=== PATIENT | male | born 1955 | race American Indian/Alaskan Native ===

== ENCOUNTER 2021-01-16 15:55 | Observation (INO) | payer SELFPAY ==
--- NOTE | 2021-01-16 16:07 | Emergency Department Report ---
ED Chest Pain HPI - General Stated Complaint: CHEST PAIN Time Seen by Provider: 01/16/21 16:06 ED Review of Systems ROS: Stated complaint: CHEST PAIN Other details as noted in HPI Critical care attestation.: If time is entered above; I have spent that time in minutes in the direct care of this critically ill patient, excluding procedure time. ED Disposition Condition: Stable
--- NOTE | 2021-01-16 16:19 | Emergency Department Report ---
ED General Adult HPI - General Chief complaint: Syncope Stated complaint: I think I passed out PUI?: No Time Seen by Provider: 01/16/21 16:06 Source: patient, EMS ( EMS documentation not available at time of chart dictati on ), RN notes reviewed Mode of arrival: Stretcher Limitations: No Limitations - History of Present Illness Initial comments: The patient is a 65-year-old gentleman. He is not known to myself previously. He is brought to the hospital by emergency medical services with a possible complaint of dehydration and syncope/near syncope. As per EMS documentation, med 44 responded to engine 7 to a sick call in [facility] to a 65-year-old gentleman with a complaint of possible seizure. EMS documents the patient is found in the care of engine 7, conscious and alert, diaphoretic, appearing weak, but not in any physical distress. Family on scene stated that patient and his nephew were out in their garage with a fan running, hanging out, when the patient began to tense up, and have seizure-like activity. The patient became very weak globally afterwards. The family stated this lasted for 4 to 5 seconds. Patient came around pretty quickly afterwards. Patient was found to be hypotensive, with a glucose of 103. Vital signs otherwise unremarkable. The patient himself is awake, alert, oriented. The patient denies physical pain. The patient states that he was sitting down, and felt like he was going to pass out, and perhaps passed out. The patient denies headache, neck pain, chest pain, abdominal pain, shortness of breath, travel, surgery, immobilization, leg pain, leg swelling, DVT and pulmonary embolism risk factors. He denies hematemesis and bright red blood per rectum. He states he does not take recreational drugs. He states he rarely if ever consumes tobacco and or alcohol. He takes aspirin [id number]. He states he does not take prescription medications. He has not received his Covid vaccination. The patient states that he feels like he is almost back to his baseline, a lthough he feels a little bit weak globally. -: Sudden Consistency: now resolved Improves with: none Worsens with: none - Related Data Allergies Allergy/AdvReac Type Severity Reaction Status Date / Time No Known Allergies Allergy Unverified 01/16/21 20:06 ED Review of Systems ROS: Stated complaint: CHEST PAIN Other details as noted in HPI Constitutional: malaise, weakness. denies: fever Eyes: denies: eye discharge, vision change ENT: denies: epistaxis Respiratory: denies: cough Cardiovascular: syncope. denies: chest pain Gastrointestinal: denies: abdominal pain, hematemesis, melena, hematochezia Genitourinary: denies: dysuria Musculoskeletal: denies: back pain Neurological: weakness. denies: headache Hematological/Lymphatic: denies: easy bleeding ED Physical Exam - General Limitations: No Limitations General appearance: alert, in no apparent distress - Head Head exam: Present: atraumatic, normocephalic - Eye Eye exam: Present: normal appearance, EOMI. Absent: nystagmus - ENT ENT exam: Present: normal exam, normal orophraynx, mucous membranes moist, normal external ear exam - Neck Neck exam: Present: normal inspection, full ROM. Absent: tenderness, meningismus - Respiratory Respiratory exam: Present: normal lung sounds bilaterally. Absent: respiratory distress, wheezes, rales, rhonchi, stridor, decreased breath sounds - Cardiovascular Cardiovascular Exam: Present: regular rate, normal rhythm, normal heart sounds. Absent: bradycardia, tachycardia, irregular rhythm, systolic murmur, diastolic murmur, rubs, gallop - GI/Abdominal GI/Abdominal exam: Present: soft. Absent: distended, tenderness, guarding, rebound, rigid, pulsatile mass - Rectal Rectal exam: Present: normal inspection, heme (-) stool, other (Chaperoned by ER gis mapping technician Aziza Montanez). Absent: heme (+) stool, black stool, bloody stool - Extremities Exam Extremities exam: Present: normal inspection, full ROM, other (2+ pulses noted in the bilateral upper and lower extremities. There is no palpable cord. negative Homans sign. Muscular compartments are soft. The pelvis is stable.). Absent: pedal edema, calf tenderness - Back Exam Back exam: Present: normal inspection, full ROM. Absent: tenderness, CVA tenderness (R), CVA tenderness (L), paraspinal tenderness, vertebral tenderness - Neurological Exam Neurological exam: Present: alert, oriented X3, other (No facial droop. Tongue midline. Extraocular movements intact bilaterally. Facial sensation intact to light touch in V1, V2, V3 distribution bilaterally. 5 and a 5 strength in 4 extremities. Sensation intact to light touch in 4 extremities.) - Psychiatric Psychiatric exam: Present: normal affect, normal mood - Skin Skin exam: Present: warm, dry, intact, normal color. Absent: rash ED Course Vital Signs 01/16/21 01/16/21 01/16/21 16:05 16:10 16:15 Temperature 97.6 F Pulse Rate 63 66 59 L Respiratory 12 14 14 Rate Blood Pressure 82/59 O2 Sat by Pulse 100 99 98 Oximetry 01/16/21 01/16/21 01/16/21 16:20 16:31 16:45 Temperature Pulse Rate 62 63 Respiratory 14 13 12 Rate Blood Pressure 92/59 O2 Sat by Pulse 99 98 Oximetry 01/16/21 01/16/21 01/16/21 17:01 17:15 17:31 Temperature Pulse Rate 60 69 57 L Respiratory 13 15 10 L Rate Blood Pressure 92/59 91/57 91/57 O2 Sat by Pulse 98 98 100 Oximetry 01/16/21 01/16/21 01/16/21 17:45 18:01 19:00 Temperature 97.4 F L Pulse Rate 57 L 53 L Respiratory 8 L 8 L Rate Blood Pressure 90/57 90/57 O2 Sat by Pulse 100 100 Oximetry - Reevaluation(s) Reevaluation #1: 01/16/21 17:17 Differential diagnosis, including but not limited to: Orthostasis, vagal event, structural cardiac disease, arrhythmia, thyroid derangement, electrolyte d erangement, illicit drug use, structural intracranial lesion, pulmonary embolism Assessment and plan: 65-year-old gentleman, who is afebrile, with hypotension, with otherwise reassuring vital signs, who denies travel, surgery, immobilization, DVT and pulmonary embolism risk factors, who is low risk by Wells criteria for pulmonary embolism, who is not currently tachycardic, tachypneic or hypoxic, brought to the hospital by emergency medical services with a complaint of seizure versus syncope. The patient does not have a known history of seizures that he is aware of. He is currently awake, alert, oriented, sober, with a GCS of 15. His physical examination is nondiagnostic, rectal examination is negative for blood. Place patient on surveillance monitor, start 2 L of lactated Ringer's, bolus, obtain appropriate laboratory studies, EKG, noncontrast CT scan of the brain, and D- dimer. Anticipate admission to the medical service once initial diagnostics have resulted. I have discussed this plan of care with the patient. He has verbalized understanding. He is agreeable to this plan of care. He has given permission for the details of his medical care to be discussed with family members. 01/16/21 18:[address] scan of the brain negative for acute findings. 01/16/21 20:09 Blood pressure improved, 110 systolic. Repeat motor exam nonfocal. CT angiogram chest negative for acute findings. Endorsed to hospital physician, Dr. Chen. Medical decision makin-year-old gentleman with seizure versus syncope, hypotension, abnormal EKG, GCS of 15, to be admitted for further inpatient urgent diagnostic evaluation and management. Do not clinically suspect pneumonia or pneumonitis. 01/16/21 20:10 ED Medical Decision Making - Lab Data Result diagrams: 01/16/21 16:26 01/16/21 16:26 Lab Results 01/16/21 01/16/21 01/16/21 Range/Units 16:26 16:26 16:26 WBC 6.5 (4.5-11.0) K/mm3 RBC 3.99 (3.65-5.03) M/mm3 Hgb 12.5 (11.8-15.2) gm/dl Hct 37.3 (35.5-45.6) % MCV 93 (84-94) fl MCH 31 (28-32) pg MCHC 34 (32-34) % RDW 14.6 (13.2-15.2) % Plt Count 228 (140-440) K/mm3 Lymph % (Auto) 33.2 (13.4-35.0) % Maries % (Auto) 7.6 H (0.0-7.3) % Eos % (Auto) 0.5 (0.0-4.3) % Baso % (Auto) 1.6 (0.0-1.8) % Lymph # (Auto) 2.2 (1.2-5.4) K/mm3 Maries # (Auto) 0.5 (0.0-0.8) K/mm3 Eos # (Auto) 0.0 (0.0-0.4) K/mm3 Baso # (Auto) 0.1 (0.0-0.1) K/mm3 Seg Neutrophils % 57.1 (40.0-70.0) % Seg Neutrophils # 3.7 (1.8-7.7) K/mm3 PT 14.9 (12.2-14.9) Sec. INR 1.12 (0.87-1.13) D-Dimer 468.28 H (0-234) ng/mlDDU Lactic Acid 2.00 (0.7-2.0) mmol/L Acetaminophen (10.0-30.0) ug/mL Plasma/Serum Alcohol (0-0.07) % 01/16/21 01/16/21 Range/Units 16:26 16:26 WBC (4.5-11.0) K/mm3 RBC (3.65-5.03) M/mm3 Hgb (11.8-15.2) gm/dl Hct (35.5-45.6) % MCV (84-94) fl MCH (28-32) pg MCHC (32-34) % RDW (13.2-15.2) % Plt Count (140-440) K/mm3 Lymph % (Auto) (13.4-35.0) % Maries % (Auto) (0.0-7.3) % Eos % (Auto) (0.0-4.3) % Baso % (Auto) (0.0-1.8) % Lymph # (Auto) (1.2-5.4) K/mm3 Maries # (Auto) (0.0-0.8) K/mm3 Eos # (Auto) (0.0-0.4) K/mm3 Baso # (Auto) (0.0-0.1) K/mm3 Seg Neutrophils % (40.0-70.0) % Seg Neutrophils # (1.8-7.7) K/mm3 PT (12.2-14.9) Sec. INR (0.87-1.13) D-Dimer (0-234) ng/mlDDU Lactic Acid (0.7-2.0) mmol/L Acetaminophen 5.0 L (10.0-30.0) ug/mL Plasma/Serum Alcohol < 0.01 (0-0.07) % Vital Signs 01/16/21 01/16/21 01/16/21 16:05 16:15 16:31 Pulse Rate 63 59 L 62 Respiratory 12 14 13 Rate Blood Pressure O2 Sat by Pulse 100 98 99 Oximetry 01/16/21 01/16/21 01/16/21 16:45 17:01 17:15 Pulse Rate 63 60 69 Respiratory 12 13 15 Rate Blood Pressure 92/59 92/59 91/57 O2 Sat by Pulse 98 98 98 Oximetry 01/16/21 01/16/21 01/16/21 17:31 17:45 18:01 Pulse Rate 57 L 57 L 53 L Respiratory 10 L 8 L 8 L Rate Blood Pressure 91/57 90/57 90/57 O2 Sat by Pulse 100 100 100 Oximetry - EKG Data -: EKG Interpreted by Nc EKG shows normal: sinus rhythm Rate: normal - EKG Data When compared to previous EKG there are: previous EKG unavailable 01/16/21 17:19 EKG interpreted at 15: 56 Sinus rhythm, with a rate of 59 bpm. There is a normal P wave axis. There is a left axis deviation, with a borderline left anterior fascicular block. There is a right bundle branch block. There is a first-degree AV block. This is an abnormal EKG. This is not a STEMI. Appears to be unchanged from prior prehospital EKG. Otherwise, no prior EKGs available for comparison. - Radiology Data Radiology results: pending, report reviewed, image reviewed CTA CHEST WITH IV CONTRAST INDICATION: syncope + d dimer, abnormal ekg CONTRAST: 100 cc Omnipaque 350 IV COMPARISON: None available. Three-plane MIP reconstructions were produced. All CT scans at this location are performed using CT dose reduction for ALARA by means of automated exposure control. FINDINGS: No significant axillary or chest wall lesions are seen. No mediastinal or hilar masses are noted. Visualized portions of the upper abdomen show small probable cysts in the liver. Stomach is mildly distended with fluid. Small left renal cyst is noted. No pleural effusions are seen. No obvious endobronchial lesions are noted. No pneumothorax or pneumomediastinum are seen. Mild chronic appearing diffuse pulmonary changes are noted including mild emphysematous changes. A 3 mm noncalcified peripheral nodule is seen laterally in the left upper lobe. Atel ectatic changes and probable scarring are seen in both lower lobes. No definite pneumonic infiltrates are identified though the appearance of the left lower lobe does not fully exclude the possibility. No areas of consolidation are noted. Aorta shows no aneurysmal dilatation or obvious evidence of dissection. Good opacification of the pulmonary arterial system was achieved. Artifact from the patient's arms makes evaluation of the lower lobe smaller arteries difficult but I do not see convincing evidence of pulmonary thromboembolism. IMPRESSION: 1. No convincing evidence of pulmonary thromboembolism as above 2. Bilateral atelectatic changes. Pneumonitis is not fully excluded in the left lower lobe. 3. Tiny left upper lobe pulmonary nodule of doubtful significance INCIDENTAL PULMONARY NODULE RECOMMENDATIONS Solid Nodule size* <6 mm -- Single or Multiple - Low Risk Patient: No routine follow-up - High Risk Patient: Optional CT at 12 months Note These recommendations do not apply to lung cancer screening, patients with immunosuppression, or patients with known primary cancer. Note Newly detected indeterminate nodule in persons 35 years of age or older. Persons under the age of 35 should not receive follow-up unless there is a known primary cancer. Low Risk Patient -- minimal or absent history of smoking and of other known risk factors. High Risk Patient -- history of smoking or of other known risk factors. *Dimensions are average of long and short axes, rounded to the nearest millimeter. Based on 2017 Fleischner Society Guidelines found in Radiology 2017 284:228-243. https://doi.[email or web address]/radiol.[email or web address] Signer Name: Napoleon Montanez MD Signed: 01/16/2021 6:58 PM Workstation Name: [id number] CT head/brain wo con INDICATION: New onset seizure versus syncope. TECHNIQUE: Routine CT head. All CT scans at this location are performed using CT dose reduction for ALARA by means of automated exposure control. COMPARISON: None. FINDINGS: Intracranial: Quinones-white matter differentiation is maintained. No intracranial hemorrhage. No extra axial collection. No hydrocephalus. No herniation. Sinuses: Paranasal sinuses and mastoid air cells are essentially c lear. Orbits: Globes are intact. Calvarium: No acute fracture. IMPRESSION: 1. No acute intracranial abnormality. Signer Name: Leonardo Sawyer MD Signed: 01/16/2021 5:47 PM Workstation Name: [id number] Critical care attestation.: If time is entered above; I have spent that time in minutes in the direct care of this critically ill patient, excluding procedure time. ED Disposition Clinical Impression: Syncope, Hypotension, Abnormal EKG Disposition: DC-09 OP ADMIT IP TO THIS HOSP Is pt being admited?: Yes Does the pt Need Aspirin: No Condition: Stable Instructions: Syncope (ED) Referrals: PRIMARY CARE,MD [Primary Care Provider] - 3-5 Days
[2021-01-16] MEDS ORDERED: LACTATED RINGERS 2,000 ML IV ONE (16:20)
[2021-01-16 17:04] LABS: Basophils # (Auto) 0.1 K/mm3 (0.0-0.1); Basophils % (Auto) 1.6 % (0.0-1.8); Eosinophils % (Auto) 0.5 % (0.0-4.3); Hematocrit 37.3 % (35.5-45.6); Hemoglobin 12.5 gm/dl (11.8-15.2); Lymphocytes # (Auto) 2.2 K/mm3 (1.2-5.4); Lymphocytes % (Auto) 33.2 % (13.4-35.0); Mean Corpuscular HGB Conc 34 % (32-34); Mean Corpuscular Volume 93 fl (84-94); Monocytes # (Auto) 0.5 K/mm3 (0.0-0.8); Monocytes % (Auto) 7.6 % (0.0-7.3); Platelet Count 228 K/mm3 (140-440); Red Blood Count 3.99 M/mm3 (3.65-5.03); Red Cell Distribution Width 14.6 % (13.2-15.2)
[2021-01-16 17:13] LABS: INR 1.12 (0.87-1.13)
[2021-01-16 17:22] LABS: Alanine Aminotransferase 14 units/L (7-56); Albumin 3.5 g/dL (3.9-5); BUN/Creatinine Ratio 17; Blood Urea Nitrogen 15 mg/dL (9-20); Calcium 8.5 mg/dL (8.4-10.2); Hemolysis Index 5
--- NOTE | 2021-01-16 18:51 | Cat Scan Report ---
CT head/brain wo con INDICATION: New onset seizure versus syncope. TECHNIQUE: Routine CT head. All CT scans at this location are performed using CT dose reduction for A MONA by means of automated exposure control. COMPARISON: None. FINDINGS: Intracranial: Quinones-white matter differentiation is maintained. No intracranial hemorrhage. No extra a xial collection. No hydrocephalus. No herniation. Sinuses: Paranasal sinuses and mastoid air cells are essentially clear. Orbits: Globes are intact. Calvarium: No acute fracture. IMPRESSION: 1. No acute intracranial abnormality. Signer Name: Leonardo Sawyer MD Signed: 01/16/2021 6:47 PM Workstation Name: [id number]
[2021-01-16] MEDS ORDERED: LACTATED RINGERS 1,000 ML IV ONE (18:58)
[2021-01-16] MEDS ORDERED: SODIUM CHLORIDE 0.9% 1000 ML 2,000 ML ONE (19:57)
--- NOTE | 2021-01-16 20:03 | Cat Scan Report ---
CTA CHEST WITH IV CONTRAST INDICATION: syncope + d dimer, abnormal ekg CONTRAST: 100 cc Omnipaque 350 IV COMPARISON: None available. Three-plane MIP reconstructions were produced. All CT scans at this location are performed using CT d ose reduction for ALARA by means of automated exposure control. FINDINGS: No significant axillary or chest wall lesions are seen. No mediastinal or hilar masses are noted. Visualized portions of the upper abdomen show small probable cysts in the liver. Stomach is mi ldly distended with fluid. Small left renal cyst is noted. No pleural effusions are seen. No obvious endobronchial lesions are noted. No pneumothorax or pneumom ediastinum are seen. Mild chronic appearing diffuse pulmonary changes are noted including mild emphys ematous changes. A 3 mm noncalcified peripheral nodule is seen laterally in the left upper lobe. Atel ectatic changes and probable scarring are seen in both lower lobes. No definite pneumonic infiltrates are identified though the appearance of the left lower lobe does not fully exclude the possibility. No areas of consolidation are noted. Aorta shows no aneurysmal dilatation or obvious evidence of dissection. Good opacification of the pulmonary arterial system was achieved. Artifact from the patient's arms ma kes evaluation of the lower lobe smaller arteries difficult but I do not see convincing evidence of p ulmonary thromboembolism. IMPRESSION: 1. No convincing evidence of pulmonary thromboembolism as above 2. Bilateral atelectatic changes. Pneumonitis is not fully excluded in the left lower lobe. 3. Tiny left upper lobe pulmonary nodule of doubtful significance INCIDENTAL PULMONARY NODULE RECOMMENDATIONS Solid Nodule size* <6 mm -- Single or Multiple - Low Risk Patient: No routine follow-up - High Risk Patient: Optional CT at 12 months Note These recommendations do not apply to lung cancer screening, patients with immunosuppression, o r patients with known primary cancer. Note Newly detected indeterminate nodule in persons 35 years of age or older. Persons under the age of 35 should not receive follow-up unless there is a known primary cancer. Low Risk Patient -- minimal or absent history of smoking and of other known risk factors. High Risk Patient -- history of smoking or of other known risk factors. *Dimensions are average of long and short axes, rounded to the nearest millimeter. Based on 2017 Fleischner Society Guidelines found in Radiology 2017 284:228-243. [email or web address].[email or web address] [email or web address] Signer Name: Napoleon Montanez MD Signed: 01/16/2021 7:58 PM Workstation Name: [id number]
[2021-01-16] MEDS ORDERED: ASPIRIN 81 MG TAB CHEW PO ONE (20:09)
[2021-01-16 23:19] LABS: Amphetamine Screen,Urine Negative; Benzodiazepines Screen,Urine Negative; Cocaine Screen,Urine Negative; Methadone Screen,Urine Negative; Opiate Screen,Urine Negative
[2021-01-16 23:19] LABS: Bilirubin,Urine NEG (Negative); Blood,Urine NEG (Negative); Color,Urine Straw (Yellow); Protein,Urine <15 mg/dL mg/dL (Negative); RBC,Urine < 1.0 /HPF (0.0-6.0); Urobilinogen,Urine < 2.0 mg/dL (<2.0); WBC,Urine < 1.0 /HPF (0.0-6.0)
[2021-01-16 23:41] LABS: Cannabinoid Screen,Urine Positive
[2021-01-17] MEDS ORDERED: MORPHINE 2 MG/1 ML INJ IV PRN (05:36)
[2021-01-17] MEDS ORDERED: ONDANSETRON 4 MG/2 ML INJ IV PRN (05:36)
[2021-01-17] MEDS ORDERED: MAGNESIUM HYDROXIDE (MOM) ORAL LIQD UDC PO PRN (05:36)
[2021-01-17] MEDS ORDERED: MORPHINE 4 MG/1 ML INJ IV PRN (05:36)
[2021-01-17] MEDS ORDERED: ACETAMINOPHEN 325 MG TAB PO PRN (05:36)
--- NOTE | 2021-01-17 05:44 | History and Physical Report ---
History of Present Illness Date of examination: 01/17/21 Date of admission: 01/17/21 01:35 Chief complaint: Syncope History of present illness: XT 5-year-old -Prydeinig male with no significant past medical history brought into the emergency room today by EMS for possible seizures versus syncopal episode. Patient was said to be in the garage with a nephew with a fan running and suddenly status tensing up and had what looked like a seizure-like activity. Pa phuong was said to become weak thereafter episode was said to have lasted about 4 to 5 seconds. Patient was found to be hypotensive with a glucose of 103 at the scene. Upon arrival in the emergency room patient was found to be alert and oriented and denies any significant problem except for generalized weakness. He denies any chest pain or shortness of breath, no nausea vomiting, no abdominal pain, no hematuria or dysuria, denies any cough, patient denies any recent travel and no contact with anyone with COVID-19. He has not had his COVID-19 vaccination. Upon arrival in the emergency room patient was found to be bradycardic and hypotensive and subsequently placed on some IV fluid. There was significant improvement in his blood pressure. Work-up in the emergency room EKG was sinus rhythm however patient had a first degree AV block and a right bundle branch block. No previous EKGs. D-dimer was slightly elevated however CT angiogram reveals no acute findings except bilateral atelectatic changes and a tiny left upper lobe pulmonary nodule of doubtful significance. CT scan of the head reveals no acute abnormality. Past History Past Medical History: No medical history Past Surgical History: No surgical history Social history: no significant social history Family history: no significant family history Medications and Allergies Allergies Allergy/AdvReac Type Severity Reaction Status Date / Time No Known Allergies Allergy Unverified 01/16/21 20:06 Active Meds: Active Medications Acetaminophen (Acetaminophen 325 Mg Tab) 650 mg PO Q4H PRN PRN Reason: Pain MILD(1-3)/Fever >100.5/JACKSON Magnesium Hydroxide (Magnesium Hydroxide (Mom) Oral Liqd Udc) 30 ml PO Q4H PRN PRN Reason: Constipation Morphine Sulfate (Morphine 2 Mg/1 Ml Inj) 2 mg IV Q4H PRN PRN Reason: Pain, Moderate (4-6) Morphine Sulfate (Morphine 4 Mg/1 Ml Inj) 4 mg IV Q4H PRN PRN Reason: Pain , Severe (7-10) Ondansetron HCl (Ondansetron 4 Mg/2 Ml Inj) 4 mg IV Q8H PRN PRN Reason: Nausea And Vomiting Sodium Chloride (Sodium Chloride 0.9% 10 Ml Flush Syringe) 10 ml IV BID VALERIE Sodium Chloride (Sodium Chloride 0.9% 10 Ml Flush Syringe) 10 ml IV PRN PRN PRN Reason: LINE FLUSH Review of Systems Constitutional: weakness, no fever, no chills Ears, nose, mouth and throat: no nasal congestion, no sore throat Cardiovascular: no chest pain, no palpitations Respiratory: no cough, no shortness of breath Gastrointestinal: no abdominal pain, no nausea, no vomiting, no diarrhea Genitourinary Male: no dysuria, no hematuria, no flank pain Musculoskeletal: no neck pain, no low back pain Integumentary: no rash, no pruritis Neurological: syncope, no headaches, no confusion Psychiatric: no anxiety, no depression Endocrine: no polyphagia, no excessive thirst, no polydipsia, no polyuria, no nocturia Exam - Constitutional Vitals: Temp Pulse Resp BP Pulse Ox 97.4 F L 58 L 9 L 103/65 99 01/16/21 19:00 01/17/21 02:45 01/17/21 02:45 01/17/21 02:45 01/17/21 02:45 General appearance: Present: no acute distress, well-nourished - EENT Eyes: Present: PERRL, EOM intact. Absent: scleral icterus ENT: hearing intact, clear oral mucosa, dentition normal - Neck Neck: Present: supple, normal ROM - Respiratory Respiratory effort: normal Respiratory: bilateral: CTA - Cardiovascular Rhythm: regular Heart Sounds: Present: S1 & S2. Absent: gallop, systolic murmur, diastolic murmur, rub, click - Extremities Extremities: no ischemia, pulses intact, pulses symmetrical, No edema, normal temperature, normal color, Full ROM Peripheral Pulses: within normal limits - Abdominal General gastrointestinal: Present: soft, non-tender, non-distended, normal bowel sounds. Absent: mass - Integumentary Integumentary: Present: clear, warm, dry, normal turgor. Absent: rash - Musculoskeletal Musculoskeletal: strength equal bilaterally - Psychiatric Psychiatric: appropriate mood/affect, intact judgment & insight, memory intact, cooperative - Neurologic Neurologic: CNII-XII intact, no focal deficits, moves all extremities HEART Score - HEART Score Troponin: Troponin T < 0.010 ng/mL (0.00-0.029) 01/16/21 16:26 Results - Labs CBC & Chem 7: 01/16/21 16:26 01/16/21 16:26 Labs: Abnormal lab results 01/16/21 01/16/21 01/16/21 Range/Units 16: 16:26 16:26 [place] % (Auto) 7.6 H (0.0-7.3) % D-Dimer 468.28 H (0-234) ng/mlDDU Glucose 112 H (75-100) mg/dL Total Protein 5.8 L (6.3-8.2) g/dL Albumin 3.5 L (3.9-5) g/dL Salicylates (2.8-20.0) mg/dL Acetaminophen (10.0-30.0) ug/mL 01/16/21 01/16/21 Range/Units 16:26 16:26 [place] % (Auto) (0.0-7.3) % D-Dimer (0-234) ng/mlDDU Glucose (75-100) mg/dL Total Protein (6.3-8.2) g/dL Albumin (3.9-5) g/dL Salicylates 2.4 L (2.8-20.0) mg/dL Acetaminophen 5.0 L (10.0-30.0) ug/mL Assessment and Plan - Patient Problems (1) Syncope Current Visit: Yes Status: Acute Plan to address problem: Etiology is unclear. Possibly secondary to hypotension. It is doubtful whether patient also had a seizure-like activity. However we will place on seizure precautions. Consult will be placed to neurology for evaluation. We will schedule for EEG. We will also schedule for carotid Doppler and echocardiogram. In view of the abnormal findings on EKG, will request cardiology evaluation. (2) Hypotension Current Visit: Yes Status: Acute Plan to address problem: Patient placed on IV fluid normal saline. Will monitor orthostatic vital signs closely. (3) Abnormal EKG Current Visit: Yes Status: Acute Plan to address problem: We will monitor patient on telemetry. (4) DVT prophylaxis Current Visit: Yes Status: Acute Plan to address problem: Patient placed on subcutaneous heparin. (5) Full code status Current Visit: Yes Status: Acute Plan to address problem: Patient is full code.
--- NOTE | 2021-01-17 09:20 | Consultation ---
History of Present Illness Consult date: 01/17/21 Reason for Consult: Seizure Chief complaint: "I passed out." History of present illness: 65 yo male with a hx of multiple syncopal episodes, presents with a syncopal event where he felt "hot", dizzy, and diaphoretic and then passed out for a few seconds w/ tonic/clonic activity, incontinence, tongue bite, or confusion. Currently at his neurologic baseline. This occurred while he was in the garage with a fan on. In the ED, noted to be hypotensive with bradycardia w/ an AV block. Past History Past Medical History: No medical history, other (syncope) Past Surgical History: No surgical history Social history: no significant social history Family history: no significant family history Medications and Allergies Allergies Allergy/AdvReac Type Severity Reaction Status Date / Time No Known Allergies Allergy Unverified 01/16/21 20:06 Active Meds: Active Medications Acetaminophen (Acetaminophen 325 Mg Tab) 650 mg PO Q4H PRN PRN Reason: Pain MILD(1-3)/Fever >100.5/JACKSON Magnesium Hydroxide (Magnesium Hydroxide (Mom) Oral Liqd Udc) 30 ml PO Q4H PRN PRN Reason: Constipation Morphine Sulfate (Morphine 2 Mg/1 Ml Inj) 2 mg IV Q4H PRN PRN Reason: Pain, Moderate (4-6) Morphine Sulfate (Morphine 4 Mg/1 Ml Inj) 4 mg IV Q4H PRN PRN Reason: Pain , Severe (7-10) Ondansetron HCl (Ondansetron 4 Mg/2 Ml Inj) 4 mg IV Q8H PRN PRN Reason: Nausea And Vomiting Sodium Chloride (Sodium Chloride 0.9% 10 Ml Flush Syringe) 10 ml IV BID VALERIE Sodium Chloride (Sodium Chloride 0.9% 10 Ml Flush Syringe) 10 ml IV PRN PRN PRN Reason: LINE FLUSH Review of Systems All systems: negative Physical Examination - Vital Signs Vital Signs: Vital Signs Pulse Resp Pulse Ox 63 12 100 01/16/21 16:05 01/16/21 16:05 01/16/21 16:05 - Physical Exam Narrative exam: Gen: nad, well-nourished; Head: normocephalic; Eyes: no gaze deviation; no ptosis; ENT: normal vocalization; CVS: warm and well-perfused; Pulm: no respiratory distress; GI: appears non-distended, protuberant; Ext: no cyanosis at distal extremities; Skin: no acute rash or hives at distal extremities; Heme: no pathologic bruising or ecchymosis at distal extremities; Neuro: alert, oriented to name, age, month, year, surroundings, no dysarthria, no aphasia, CN 2 - PERRL, visual mckinley grossly intact, CN 3, 4, 6 - EOMI, CN 5 - facial sensation symmetric to light touch, CN 7 - facial movement symmetric, CN 8 - hearing grossly intact, CN 9, 10 - uvula midline, CN 11 - shrug symmetric, CN 12 - tongue midline; Motor - at least 5-/5 in all exts; Sensory - light touch symmetric, Cerebellar - fnf /hts intact, Gait - deferred secondary to fall risk; Results - Laboratory Findings CBC and BMP: 01/16/21 16:26 01/16/21 16:26 Abnormal Lab Findings: Abnormal Labs 01/16/21 01/16/21 01/16/21 16:26 16:26 16:26 [place] % (Auto) 7.6 H D-Dimer 468.28 H Glucose 112 H Total Protein 5.8 L Albumin 3.5 L Salicylates Acetaminophen 01/16/21 01/16/21 16:26 16:26 [place] % (Auto) D-Dimer Glucose Total Protein Albumin Salicylates 2.4 L Acetaminophen 5.0 L Assessment and Plan 65 yo male with a hx of multiple syncopal episodes, presents with a syncopal event where he felt "hot", dizzy, and diaphoretic and then passed out for a few seconds w/ tonic/clonic activity, incontinence, tongue bite, or confusion. Currently at his neurologic baseline. This occurred while he was in the garage with a fan on. In the ED, noted to be hypotensive with bradycardia w/ an AV block. 1. Syncope - cta head/neck w/ wo contrast; non-neurogenic workup per primary team. 2. 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 3. Seizure - clinically not c/w an ictal event; no further neurologic workup indicated at present. 4. Fall precautions. Cassius Christopher MD Neurology [id number]
--- NOTE | 2021-01-17 13:03 | Consultation ---
History of Present Illness Consult date: 01/17/21 Requesting physician: YADI ROSARIO Consult reason: syncope History of present illness: This patient is a 65-year-old male with no known medical history. He is previously unknown to our practice. Patient presents to [facility] ER after possible seizure/syncopal episode lasting several seconds. Patient states he was sitting in his garage with family when he became very flushed and diaphoretic, family states they wish witnessed seizure-like activity which lasted several minutes followed by postictal state or patient was somnolent and confused. Patient denies any previous history of seizures. Patient does not have a core sucker or PCP, takes no daily medications save baby aspirin. Twelve-lead ECG shows sinus bradycardia with right bundle branch block, no acute ischemic changes. Patient denies any weakness, dizziness, chest pain, shortness of breath, N/V/D, recent illness or known exposures. Past History Past Medical History: No medical history, other (syncope) Past Surgical History: No surgical history Social history: no significant social history Family history: no significant family history Medications and Allergies Allergies Allergy/AdvReac Type Severity Reaction Status Date / Time No Known Allergies Allergy Unverified 01/16/21 20:06 Active Meds: Active Medications Acetaminophen (Acetaminophen 325 Mg Tab) 650 mg PO Q4H PRN PRN Reason: Pain MILD(1-3)/Fever >100.5/[place] Magnesium Hydroxide (Magnesium Hydroxide (Mom) Oral Liqd Udc) 30 ml PO Q4H PRN PRN Reason: Constipation Morphine Sulfate (Morphine 2 Mg/1 Ml Inj) 2 mg IV Q4H PRN PRN Reason: Pain, Moderate (4-6) Morphine Sulfate (Morphine 4 Mg/1 Ml Inj) 4 mg IV Q4H PRN PRN Reason: Pain , Severe (7-10) Ondansetron HCl (Ondansetron 4 Mg/2 Ml Inj) 4 mg IV Q8H PRN PRN Reason: Nausea And Vomiting Sodium Chloride (Sodium Chloride 0.9% 10 Ml Flush Syringe) 10 ml IV BID VALERIE Last Admin: 01/17/21 10:12 Dose: 10 ml Documented by: Sodium Chloride (Sodium Chloride 0.9% 10 Ml Flush Syringe) 10 ml IV PRN PRN PRN Reason: LINE FLUSH Review of Systems Constitutional: no weight loss, no weight gain, no fever, no chills, no sweats Ears, nose, mouth and throat: no ear pain, no ear discharge, no nose pain, no nasal congestion, no nasal discharge Cardiovascular: syncope, no chest pain, no orthopnea, no palpitations, no rapid/ irregular heart beat, no edema, no lightheadedness, no shortness of breath, no dyspnea on exertion, no paroxysmal nocturnal dyspnea, no claudication, no high blood pressure, no leg edema, no decreased exercise tolerance Respiratory: no cough, no cough with sputum, no hemoptysis, no shortness of breath, no dyspnea on exertion Gastrointestinal: no abdominal pain, no nausea, no vomiting, no diarrhea Genitourinary Male: no flank pain Musculoskeletal: no neck stiffness, no neck pain, no shooting arm pain, no arm numbness/tingling, no low back pain Integumentary: no rash, no pruritis, no redness, no sores, no wounds Neurological: seizures, syncope, no head injury, no paralysis, no weakness, no parathesias, no numbness, no tingling Psychiatric: no anxiety Endocrine: no cold intolerance, no heat intolerance Hematologic/Lymphatic: no easy bruising, no easy bleeding Allergic/Immunologic: no urticaria Physical Examination Last Vital Signs Temp 97.4 F L 01/16/21 19:00 Pulse 69 01/17/21 12:00 Resp 14 01/17/21 12:00 BP 111/71 01/17/21 12:00 Pulse Ox 100 01/17/21 12:00 General appearance: no acute distress HEENT: Positive: PERRL, Normocephaly, Mucus Membranes Moist Neck: Positive: neck supple, trachea midline Cardiac: Positive: Reg Rate and Rhythm, S1/S2 Lungs: Positive: Normal Exam, Normal Breath Sounds Neuro: Positive: Grossly Intact Abdomen: Positive: Unremarkable, Soft Musculoskeletal: No Fluid Collection Extremities: Present: upper extr. pulses, lower extr. pulses. Absent: edema Results 01/16/21 16:26 01/16/21 16:26 Cardiac Enzymes 01/16/21 Range/Units 16: AST 17 (5-40) units/L CK-MB (CK-2) 2.0 (0.0-4.0) ng/mL Coagulation 01/16/21 Range/Units 16:26 PT 14.9 (12.2-14.9) Sec. INR 1.12 (0.87-1.13) CBC 01/16/21 Range/Units 16:26 WBC 6.5 (4.5-11.0) K/mm3 RBC 3.99 (3.65-5.03) M/mm3 Hgb 12.5 (11.8-15.2) gm/dl Hct 37.3 (35.5-45.6) % Plt Count 228 (140-440) K/mm3 Lymph # (Auto) 2.2 (1.2-5.4) K/mm3 [place] # (Auto) 0.5 (0.0-0.8) K/mm3 Eos # (Auto) 0.0 (0.0-0.4) K/mm3 Baso # (Auto) 0.1 (0.0-0.1) K/mm3 Comprehensive Metabolic Panel 01/16/21 Range/Units 16:26 Sodium 138 (137-145) mmol/L Potassium 4.0 (3.6-5.0) mmol/L Chloride 104.8 (98-107) mmol/L Carbon Dioxide 24 (22-30) mmol/L BUN 15 (9-20) mg/dL Creatinine 0.9 (0.8-1.3) mg/dL Glucose 112 H (75-100) mg/dL Calcium 8.5 (8.4-10.2) mg/dL AST 17 (5-40) units/L ALT 14 (7-56) units/L Alkaline Phosphatase 74 (35-129) units/L Total Protein 5.8 L (6.3-8.2) g/dL Albumin 3.5 L (3.9-5) g/dL - Imaging and Cardiology Echo: pending EKG: report reviewed, image reviewed EKG interpretations - Telemetry EKG Rhythm: Sinus Rhythm - EKG Sinus rhythms and dysrhythmias: sinus rhythm AV and intraventricular conduction: right bundle branch block Assessment and Plan Seizures/syncope new onset * Echocardiogram is pending. Exercise MPI stress test in a.m. N.p.o. after midnight. * Will order orthostatic blood pressure check. TSH is normal. Blood glucose is normal. * CTA neck and head is pending. Neurology is following Elevated D-dimer * Management per primary team Echocardiogram pending. Stress test in a.m. n.p.o. after midnight. Will follow This patient was seen in conjunction with Dr. Mireles who agrees with this assessment and plan of care - Patient Problems (1) Abnormal EKG Current Visit: Yes Status: Acute (2) DVT prophylaxis Current Visit: Yes Status: Acute (3) Syncope Current Visit: Yes Status: Acute
--- NOTE | 2021-01-17 14:55 | Vascular Lab Report ---
DUPLEX DOPPLER ULTRASOUND CAROTID, BILATERAL INDICATION / CLINICAL INFORMATION: SYNCOPE. COMPARISON: None available. FINDINGS: RIGHT CAROTID: - PLAQUE ESTIMATE (%): < 50% - CCA velocity: 68 cm/sec. - ICA peak systolic velocity: 85 cm/sec. - ICA/CCA PSV Ratio: 1.25 Right Vertebral Artery: Antegrade flow. LEFT CAROTID: - PLAQUE ESTIMATE: < 50% - CCA velocity: 72 cm/sec. - ICA peak systolic velocity: 74 cm/sec. - ICA/CCA PSV Ratio: 1.1 Left Vertebral Artery: Antegrade flow. IMPRESSION: 1. Right Internal Carotid Artery: Less than 50% diameter stenosis. 2. Left Internal Carotid Artery: Less than 50% diameter stenosis. Velocity criteria are extrapolated from diameter data as defined by the Society of Radiologists in Ul trasound Consensus Conference, Radiology 2003; 229;340-346. NO STENOSIS (NORMAL) * Plaque = none; ICA PSV < 125 cm/sec; ICA/CCA PSV Ratio < 2.0 <50% STENOSIS * Plaque < 50%; ICA PSV < 125 cm/sec; ICA/CCA PSV Ratio < 2.0 50-69% STENOSIS * Plaque > 50%; ICA PSV = 125-230 cm/sec; ICA/CCA PSV Ratio = 2.0-4.0 >70% BUT <100% STENOSIS * Plaque > 50%; ICA PSV > 230 cm/sec; ICA/CCA PSV Ratio > 4.0 NEAR OCCLUSION * Plaque = visible lumen; ICA PSV = high/low/none; ICA/CCA PSV Ratio = variable TOTAL OCCLUSION * Plaque = no lumen; ICA PSV = none; ICA/CCA PSV Ratio = N/A Signer Name: Conner Talamantes MD Signed: 01/17/2021 2:50 PM Workstation Name: [id number]
--- NOTE | 2021-01-17 15:43 | Event Note ---
Date: 01/24/21 Patient seen and examined This is the second visit after midnight 65-year-old -Citizen Of [place] male with no significant past medical history broug ht into the emergency room today by EMS for possible seizures versus syncopal episode. Patient noted to have first-degree AV block in the ER on EKG. Cardiology consulted, 2D echo ordered Plan for stress test tomorrow morning Continue current management and plan as dictated in the H&P Patient denies any chest pain or shortness of breath S1 and S2 positive, clear to auscultate bilaterally, abdomen soft and nontender, no pedal edema -It took me about 28 minutes to reevaluate and reasses this patient, discussed with RN/CM, review medical documents, lab results, imaging, medication list and placing order.
[2021-01-18 06:16] LABS: Basophils % (Auto) 0.8 % (0.0-1.8); Eosinophils # (Auto) 0.1 K/mm3 (0.0-0.4); Eosinophils % (Auto) 1.5 % (0.0-4.3); Hematocrit 39.4 % (35.5-45.6); Hemoglobin 13.3 gm/dl (11.8-15.2); Lymphocytes # (Auto) 2.3 K/mm3 (1.2-5.4); Lymphocytes % (Auto) 48.7 % (13.4-35.0); Mean Corpuscular HGB Conc 34 % (32-34); Mean Corpuscular Volume 93 fl (84-94); Monocytes # (Auto) 0.5 K/mm3 (0.0-0.8); Monocytes % (Auto) 10.4 % (0.0-7.3); Platelet Count 225 K/mm3 (140-440); Red Blood Count 4.22 M/mm3 (3.65-5.03); Red Cell Distribution Width 14.4 % (13.2-15.2)
[2021-01-18 06:22] LABS: INR 1.06 (0.87-1.13)
[2021-01-18] MEDS ORDERED: REGADENOSON 0.4 MG/5 ML INJ IV ONE (06:51)
[2021-01-18 07:50] LABS: Blood Urea Nitrogen 9 mg/dL (9-20); Calcium 9.4 mg/dL (8.4-10.2); Hemolysis Index 4
[2021-01-18 07:51] LABS: BUN/Creatinine Ratio 13
--- NOTE | 2021-01-18 11:32 | Nuclear Medicine Report ---
APPROVED REPORT Exam: Nuclear Stress Test Indication: Chest pain [facility] Ht: 6 ft 1 in Wt: 175 lbs BSA: 2.03 m2 HR: 60 bpmBP: 123/80 mmHgBMI: 23.08 Stress Test Details Stress Test: Exercise stress testing was performed using a Rosamaria protocol. HR Resting HR: 60 bpm Max HR Achieved: 154 bpm Max Heart Rate (APMHR): 156.405680 bpm Target HR (85% APMHR): 132.918401 bpm % of APMHR: 98.72 BP Resting BP: 123/80 mmHg Max BP: 158/90 mmHg Recovery BP: 126/83 mmHg ECG Resting ECG: Sinus Bradycardia Clinical Reason for Termination: Completed protocol Stress Symptoms: None Exercise duration: 9 min 00 sec Exercise capacity: 10.2 METs Overall Exercise Capacity for Age: Good NM EXAM: Myocardial Perfusion REST/STRESS Imaging Protocol: Rest Tc-99m/Stress Tc-99m 1 day Resting Data Rest SPECT myocardial perfusion imaging was performed in supine position 45 minutes following the intravenous injection of 10 mCi of Tc-99m Myoview. Time of rest injection: 0645 Exercise Stress At peak stress, the patient was injected intravenously with 28mCi of Tc-99m Myoview. Time of stress injection: 0853 Gated Stress SPECT was performed 30 minutes after stress injection. The images were gated to evaluate regional wall motion and calculate left ventricular ejection fraction. Study Quality Study: excellent Lung Uptake: Normal Study Data TID = 1.31. Perfusion Wall Motion The rest and stress images show normal left ventricular wall motion. Nuclear Conclusion ECG Findings: negative for ischemia Clinical Findings: negative for ischemia Nuclear Findings: negative for ischemia Exercise Capacity: normal Left Ventricular Function: normal Normal study. No scintigraphic evidence for myocardial ischemia or scar. Normal left ventricular size and function with no regional wall motion abnormalities. negative treadmill ekg, 9 minutes rosamaria proctocol no chrontropic inciompetence, achieved 90% MPHR no exaggerated bp response to exercise
--- NOTE | 2021-01-18 12:14 | Electrocardiograph Report ---
[facility] Test Date: 2021-01-16 Test Time: 15:56:52 Pat Name: ROBNI TRUJILLO Department: Room: A453 Gender: M Curriculum Consultant: TIFFANIE : [id number] Requested By: NANCY CRONIN Order Number: [id number] Reading MD: Nazia Cerrato Measurements Intervals [place] Rate: 59 P: 82 MI: 210 QRS: -33 QRSD: 150 T: 40 QT: 438 QTc: 435 Interpretive Statements Sinus bradycardia Right bundle branch block No previous ECG available for comparison Electronically Signed On 01-18-2021 12:13:52 EDT by Nazia Cerrato
--- NOTE | 2021-01-18 13:42 | Discharge Summary ---
Providers - Providers Date of Admission: 01/17/21 01:35 Date of discharge: 01/18/21 Attending physician: NANCY CRONIN 01/17/21 05:36 Consult to Physician [CONS] Routine Comment: Consulting Provider: KENDRICK GALARZA Physician Instructions: Reason For Exam: SYNCOPE,ABNORMAL EKG 01/17/21 06:20 Consult to Physician [CONS] Routine Comment: Consulting Provider: CHAPARRITA JAQUEZ Physician Instructions: Reason For Exam: R/O seizures Primary care physician: NET DEVELOPER CONTRACT Hospitalization Condition: Stable Pertinent studies: Head CT, chest CTA, carotid Doppler , neck CT, MPI stress test, 2D echocardiogram Hospital course: 65-year-old -[place] male with no significant past medical history was brought into the emergency room by EMS for possible seizures versus syncopal episode. Patient noted to have first-degree AV block in the ER on EKG and hypotensive with BP 82/59. Cardiology consulted, 2D echo ordered showed preserved EF. MPI stress test showed no reversible ischemia. CT head was unremarkable. Chest CTA showed no pulmonary embolism. Carotid Doppler showed less than 50% stenosis bilaterally. He was also assess for orthostatic hypotension. CT neck showed multilevel spondylotic changes in the cervical spine for which he was recommended outpatient follow-up with PCP. TSH level was normal. Heart rate and BP remained stable following admission. His all work- up was negative and patient was recommended to follow-up with special makeup fx artist instructor in 1 week. Patient might need outpatient event monitoring for recurrent syncopal episodes. Discharge plan and management was thoroughly discussed with the patient and his and they both verbalized understanding. Patient was discharged home in stable condition with outpatient follow-up. Disposition: - TO HOME OR SELFCARE Final Discharge Diagnosis (Prints w/discharge instructions): -- Syncope, likely due to hypotension. --Hypotension, resolved. likely from dehydration. --Sinus bradycardia, resolved. -- Cervical spine with spondylitic changes Time spent for discharge: 34 minutes Core Measure Documentation - Palliative Care Palliative Care/ Comfort Measures: Not Applicable - Core Measures Any of the following diagnoses?: none Exam - Physical Exam Narrative exam: GENERAL: well-developed and well-nourished elderly AAM lying on bed appeared to be in no discomfort. HEENT: Normocephalic. Atraumatic. No conjunctival congestion or icterus. Patient has moist mucous membranes. NECK: Supple. Trachea midline. CHEST/LUNGS: Clear to auscultated bilaterally, breathing nonlabored. No wheezes crackles or rhonchi. HEART/CARDIOVASCULAR: Regular in rate and rhythm. S1 and S2 positive. ABDOMEN: Abdomen is soft, nontender. Patient has normal bowel sounds. SKIN: There is no rash. Warm and dry. NEURO: No focal motor deficit. Follows command. MUSCULOSKELETAL: No joint effusion or tenderness. EXTRIMITY: No edema, no cyanosis or clubbing. PSYCH: Cooperative. - Constitutional Vitals: Temp Pulse Resp BP Pulse Ox 98.2 F 64 18 126/72 98 01/18/21 04:36 01/18/21 04:36 01/18/21 04:36 01/18/21 04:36 01/18/21 04:36 Plan Activity: advance as tolerated Weight Bearing Status: Weight Bear as Tolerated Diet: low fat Additional Instructions: f/u with special makeup fx artist instructor for possible event monitoring as outpt. Follow up with: TONIA ALEXANDER MD [Primary Care Provider] - 3-5 Days SHAQUILLE JC MD [Staff Physician] - 7 Days
[2021-01-18 14:41] VITALS: BP 105/77
--- NOTE | 2021-01-18 15:53 | Cat Scan Report ---
CT NECK WITHOUT CONTRAST HISTORY: Neck pain COMPARISON: None. TECHNIQUE: Routine CT of the neck is performed without intravenous contrast. [facility] CT [facility] are performed using CT dose reduction for ALARA by means of automated exposure control CONTRAST: None FINDINGS: Skull Base: No significant abnormality. Parotid, Carotid, Retropharyngeal, Prevertebral, Pharyngeal Mucosal, and Sheet Metal Supervisor Spaces: No abnorm al mass, enhancing lesion or other significant abnormality. Airway: Patent and without significant abnormality. Lymphatics: Difficulty to evaluate the lymph nodes without intravenous contrast Vasculature: Difficulty evaluate the vascular venous contrast Osseous Structures: C2-C3: Bony spur bilaterally more towards the right side; right foraminal stenoses C3-C4: Marked facet joint degenerative changes on the left side; disc osteophyte complex extending bi laterally; both neuroforamina stenotic C4-C5: Disc height loss; disc osteophyte complex extending bilaterally; bilateral foraminal stenoses C5-C6: Disc osteophyte complex towards the left side; left foraminal stenoses C6-C7: Bony spur extending bilaterally; bilateral foraminal stenoses C7-T1: Facet joint degenerative changes on the left side; mild foraminal stenoses Additional findings: Small root abscess at the level of the anterior right mandibular premolar: No ad jacent inflammatory changes IMPRESSION: Soft tissue structures of the neck is normal; multilevel spondylotic changes in the cervical spine Signer Name: Ziggy Glover MD Signed: 01/18/2021 3:48 PM Workstation Name: [id number]
== END 2021-01-18 16:57 | disposition home or self-care (01) ==
LOC: ED 15:55 → 4A 01-17 01:35
PROVIDERS: ADMIT Internal Medicine Geriatric Medicine; ATTEND Internal Medicine
DX: R55 Syncope and collapse (principal); I95.9 Hypotension, unspecified; R94.31 Abnormal electrocardiogram [ECG] [EKG]; Z79.899 Other long term (current) drug therapy
CPT/HCPCS: 36415; 70450; 70490; 71275; 78452; 80048; 80053; 80307; 81001; 82140; 82550; 82553; 82962; 83735; 84443; 84484; 85025; 85379; 85610; 93005; 93017; 93306; 93880; 99285; A9502; G0378; J7030; Q9967; 80320; G0480